=== PATIENT | female | born 1985 | race African-American/Black ===

== ENCOUNTER 2023-10-05 12:03 | Outpatient (REF) | payer MEDICAID, SELFPAY ==
--- NOTE | ~2023-10-05 | XR_ITS ---
EXAMINATION: XR KNEE, RIGHT CLINICAL INFORMATION: Right knee pain and swelling. COMPARISON: None available. TECHNIQUE: AP and lateral views of the right knee. FINDINGS: Mild medial compartment joint space narrowing. Tiny patellofemoral and lateral compartment marginal osteophytes. No osseous erosion. No acute fracture or dislocation. No abnormal soft tissue calcification. No significant joint effusion. XR/XR knee RT 2V IMPRESSION: Minimal tricompartmental arthrosis.
== END 2023-10-05 12:04 | disposition home or self-care (01) ==
LOC: HO.HHCX 12:03
PROVIDERS: Visit Provider Student in an Organized Health Care Education/Training Program
DX: M25.561 Pain in right knee (principal); G89.29 Other chronic pain
CPT/HCPCS: 73560

== ENCOUNTER 2023-12-14 08:13 | Outpatient (REF) | payer MEDICAID, SELFPAY ==
[2023-12-14 11:38] LABS: Hematocrit 42.1 % (37.0-47.0); Hemoglobin 13.7 g/dl (12.0-16.0); Mean Corpuscular HGB Conc 32.5 g/dl (31.0-35.0); Mean Corpuscular Hemoglobin 27.5 pg (27.0-33.0); Mean Corpuscular Volume 84.4 fL (80.0-98.0); Mean Platelet Volume 11.4 fL (9.4-12.3); Platelet Count 218 X10*3/uL (160-400); Red Blood Count 4.99 X10*6/uL (4.20-5.50); Red Cell Distribution Width 12.6 % (11.0-16.0)
[2023-12-14 11:41] LABS: Estimated Average Glucose 126 mg/dL
[2023-12-14 11:46] LABS: Alanine Aminotransferase 20 U/L (0-31); Albumin Level 4.4 g/dL (3.5-5.0); Alkaline Phosphatase 81 U/L (39-117); Anion Gap 13 (12-20); Aspartate Amino Transferase 19 U/L (5-31); Bilirubin Total 0.2 mg/dL (0.0-1.0); Blood Urea Nitrogen 15 mg/dL (9-16); Calcium 9.2 mg/dL (8.4-10.2); Carbon Dioxide 22 mmol/L (22-29); Chloride 111 mmol/L (96-108); Cholesterol 133 mg/dL (<200); Estimated Glomerular Filt Rate > 60; Glucose Random 136 mg/dL (60-115); HDL Cholesterol 35 mg/dL (>40); LDL Cholesterol Calculated 87 mg/dL (<100); Potassium 3.8 mmol/L (3.3-5.1); Sodium 142 mmol/L (135-145); Total Protein 7.9 g/dL (6.5-8.0); Triglycerides 55 mg/dL (<150)
[2023-12-14 12:02] LABS: HBS Num1 0.83 mIU/mL (0-7.99); HBc Num1 0.12 S/CO (0.00-0.79); HBsAGNum1 0.31 S/CO (0.00-0.99); HIV AB/AG Nonreactive (Nonreactive); HIV Num 1 0.05 S/CO (0.00-0.99); Hepatitis B Core Antibody Nonreactive (Nonreactive); Hepatitis B Surface Antigen Negative (Negative); Syphilis Screen Nonreactive (Nonreactive); ~HepC Num1 0.21 S/CO (0.00-0.79); ~Hepatitis B Surface Antibody NONREACTIVE (Nonreactive); ~Hepatitis C Antibody Nonreactive (Nonreactive)
[2023-12-14 12:05] LABS: TSH reflex Free T4 0.99 uIU/mL (0.32-4.0)
[2023-12-14 13:28] LABS: CT PCR NOT DETECTED (Not Detect.); NG PCR NOT DETECTED (Not Detect.)
[2023-12-17 07:24] LABS: TS Negative Control Passed; TS Panel A 0; TS Panel B 0; TS Positive Control Passed; TSpotTB Negative (Negative)
== END 2023-12-14 08:14 | disposition home or self-care (01) ==
LOC: HO.HHCL 08:13
PROVIDERS: Visit Provider Student in an Organized Health Care Education/Training Program
DX: Z00.00 Encounter for general adult medical examination without abnormal findings (principal)
CPT/HCPCS: 36415; 80053; 80061; 83036; 84443; 85027; 86481; 86704; 86706; 86780; 86803; 87340; 87389; 87491; 87591

== ENCOUNTER 2024-07-25 11:48 | Outpatient (REF) | payer MEDICAID, SELFPAY ==
[2024-07-25 13:59] LABS: HCG Quantitative < 2 mIU/mL
--- OUTSIDE RECORDS SUMMARY | 2024-07-25 14:16 | XMS_ITS | Encounter Summary ---
Author Organization [employer] Address [address] [place] [address] Care Team Providers Care Catering Assistant Name Role Phone Augusta Cuba MD Primary Care Pro vider Reason for Visit * Reason Comments Headache Encounter Details Date Type Department Care Team ([facility] st Contact Info) Description 07/25/2024 11:00 AM EDT Office Visit [facility] [address] [place] [address] Acute intractable headache, unspecified headache type (Primary Dx); Missed menses; Elevated blood pressure reading in office without diagnosis of hypertension; Chronic pain of right knee Social History Tobacco Use Types Packs/Day Years Used Date Smoking Tobacco: Never Passive Smoke Exposure: Never Smokeless Tobacco: Never Alcohol Use Standard Drinks/Week Comments Never 0 (1 standard drink = 0.6 oz pur e alcohol) Depression Answer Date Recorded Patient Health Questionnaire-9 Score 0 06/06/2023 Patient Health Questionnaire-9 Score 0 06/06/2023 Last PHQ-9: Questionnaire Data Not on file 0 06/06/2023 Housing Stability Answer Date Recorded What is your housing situation today? I do not have housing (Staying with others, in a hotel, in a penitentiary, living outside on the street, on a beach, in a car, or in a park 05/04/[address] you li ve. Do you have problems with any of the following? None of the above 05/04/2023 Food Insecurity Answer Date Recorded Within the past 12 months, y ou worried that your food would run out before you got money to buy more: Sometimes True 2023 Within the past 12 months,th e food you bought just didn't last and you didn't have enough money to get more: Sometimes True 05/04/2023 Transportation Answer Date Recorded In the past 12 months, has l ack of transportation kept you from medical appts, meetings, work or from getting things needed for daily living? Yes, it has kept me from medical appointments or getting medications. 05/04/2023 Utilities Answer Date Recorded In the past 12 months, has t he electric, gas, oil or water company threatened to shut off services in your home? No 01/20/2023 Depression Answer Date Recorded Patient Health Questionnaire-2 Score 0 06/06/2023 Comments Unknown Sex and Gender Information Value Date Recorded Sex Assigned at Female 06/10/2022 10:20 AM EST Legal Sex Female 10:11 AM EST Gender Identity Female 06/10/2022 10:20 AM EST Sexual Orientation Straight 06/10/2022 10 :20 AM EST documented as of this encounter Last Filed Vital Signs Vital Sign Reading Time Taken Comments Blood Pressure 143/95 07/25/2024 10:46 AM EDT Pulse 84 07/25/2024 10:46 AM EDT Temperature 36.9 ??C (98.4 ??F) 07/25/2024 10:46 AM E DT Respiratory Rate 17 07/25/2024 10:46 AM EDT Oxygen Saturation 99% 07/25/2024 10:46 AM EDT Inhaled Oxygen Concentration - - Weight 101 kg (223 lb 6.4 oz) 07/25/2024 10:46 A M EDT Height - - Body Mass Index 36.33 12/19/2023 1:20 PM EDT documented in this encounter Plan of Treatment Upcoming Encounters Date Type Department Care Team (Late st Contact Info) Description 07/31/2024 1:00 PM EDT Office Visit [facility] [address] [place] [phone] Tammy Blanco CNM [address] [place] [address] 09/19/2024 9:45 AM EDT Office Visit [facility] [address] [place] [phone] Augusta Cuba MD [address] [place] [address] documented as of this encounter Procedures Procedure Name Priority Date/Time Associated Diagnosis Comments HCG, TOTAL, QN Routine 07/25/2024 11:51 AM EDT Missed menses documented in this encounter Results * hCG, Total, Quantitative (07/25/2024 11:51 AM EDT) HCG Quantitative <2 mIU/mL [facility] Comment:Weeks post LMP Appro ximate hCG(Last Menstrual Period) Range (mIU/ml)3 - 4 weeks 9 - 1304 - 5 weeks 75 - 2,6005 - 6 weeks 850 - 20,8006 - 7 weeks 4000 - 100,2007 - 12 weeks 11,500 - 289,97218 - 16 weeks 18,300 - 137,63692 - 29 weeks (2nd trimester) 1,400 - 53,58613 - 41 weeks (3rd trimester) 940 - 60,000The Rodríguez B- hCG assay is used for the early detection ofpregnancy; it cannot be used to diagnose any conditionunrelated to . If a B-hCG level is not supportedby the clinical evidence, results should be confirmed by analternative method (qualitative urine hCG, for example). Blood Venous blood specimen / Unknown 07/25/2024 11:51 AM EDT 07/25/2024 1:08 PM EDT us Luis Cifuentes MD LAB BLOOD ORDERABLES Final Resul t [facility] [address] [place] [phone] documented in this encounter Visit Diagnoses Diagnosis Acute intractable headache, unspecified headache type- Primary Missed menses Elevated blood pressure reading in office without diagnosis of hypertension Chronic pain of right knee documented in this encounter Additional Health Concerns Assessment Noted Time PHQ-9 Depression Total Score: 0 06/06/19 24 4:23 PM EST documented as of this encounter Care Teams Catering Assistant Relationship Specialty Start Date End Date Augusta Cuba MD [address] [place] [phone] PCP - General Internal Medicine 11/22/22 documented as of this encounter
--- OUTSIDE RECORDS SUMMARY | 2024-07-25 14:16 | XMS_ITS | Clinical Summary ---
Demographics Address [address] [place] [address] Mobile Phone Home Phone Work Phone Preferred Language Unknown Marital Status Restoration Affiliation Unknown Race Other Race Ethnic Group Unknown Author Organization [employer] Address [address] [place] [address] Care Team Providers Care Sr. Manager Corporate Communications Name Role Phone Augusta Cuba MD Primary Care Pro vider Allergies No known active allergies Medications * This document contains information received from the source organization and may not represent a complete record from that organization. Blood Pressure Monitoring (Omron 3 Series BP Monitor) device TAKE BLOOD PRESSURE EVERY MORNING 06/11/19 23 Active medroxyPROGEST ERone (Depo-Provera) 150 MG/ML injection Inject 1 mL (150 mg) into the shoulder, thigh, or buttocks every 3 (three) months. 1 mL 3 08/01/19 24 Active White Petrolatum-Min eral Oil (Eye Lubricant) ointment Apply 2 drops to affected eye(s) Every 4-6 hours as needed (eye dryness). 3.5 g 10/05/19 24 Active acetaminophen (Tylenol) 500 MG tablet Take 2 tablets (1,000 mg) by mouth every 6 (six) hours if needed for moderate pain or fever for up to 25 doses. 30 tablet 07/26/19 25 Active ibuprofen 400 MG tabletIndicati ons:Chronic pain of right knee Take 1 tablet (400 mg) by mouth every 8 (eight) hours if needed for mild pain. 30 tablet 07/26/19 25 Active ibuprofen 400 MG tabletIndicati ons:Chronic pain of right knee Take 1 tablet (400 mg) by mouth every 8 (eight) hours if needed for mild pain. 30 tablet 10/05/19 24 025 Discontinued(Re order (will not trigger notification to Pharmacy)) Hospital, Clinic, or Other Facility Administered Medication Ordered Dose Route Frequency Start Date End Date Status medroxyPROGESTERone (Depo-Provera) injection 150 mgIndications:Encounte r for contraceptive management, unspecified type 150 mg IM Every 3 months 03/16/2024 03/11/2025 Acti ve Active Problems Patient Care Coordination No te Formatting of this note migh t be different from the original. C3/CM Marlen Matias RN Problem Noted Date Diagnosed Date Prediabetes 12/19/2023 Dizzinesses 12/19/2023 Eye discomfort, right 10/05/2023 Right knee pain 08/18/2023 Obesity (BMI 30.0-34.9) 02/13/2023 Routine adult health maintenance 07/12/2022 Resolved Problems Problem Noted Date Diagnosed Date Resolved Date depression 05/30/20232023 Sinus tachycardia 02/13/2023 06/07/2023 Encounters Date Type Department Care Team Description 07/25/2024 11:00 AM EDT Office Visit [facility] [address] [place] [address] Acute intractable headache, unspecified headache type (Primary Dx); Missed menses; Elevated blood pressure reading in office without diagnosis of hypertension; Chronic pain of right knee 07/25/2024 Travel 06/15/2024 Population Health Risk Score [facility] ([facility]) Department [address] [place] [phone] Provider, Population Health Generic 05/31/2024 Telephone [facility] [address] [place] [address] Augusta Cuba MD May Recall 05/22/2024 Travel from Last 3 Months Immunizations Name Administration Dates Next Due Influenza, seasonal, injectable, preservative fr ee 12/19/2023 Tdap 02/09/2023 Family History Medical History Relation Name Comments HTN Sister Relation Name Status Comments Sister Social History Tobacco Use Types Packs/Day Years Used Date Smoking Tobacco: Never Passive Smoke Exposure: Never Smokeless Tobacco: Never Tobacco Cessation:Counseling Given: Not Answered Alcohol Use Standard Drinks/Week Comments Never 0 [...] with others, in a hotel, in a mcfp, living outside on the street, on a [...] Orientation Straight 06/10/2022 10 :20 AM EST Last Filed Vital Signs Vital Sign Reading [...] oz) 07/25/2024 10:46 A M EDT Height 167 cm (5' 5.75 ) 12/19/2023 1:20 PM EDT Body Mass Index 36.33 12/19/2023 1:20 PM EDT Plan of Treatment Upcoming Encounters Date Type Department Care Team (Late st Contact Info) Description 07/31/2024 1:00 PM EDT Office Visit [facility] [address] [place] [address] [phone] Tammy Blanco CNM [address] [place], [place] [phone] 09/19/2024 9:45 AM EDT Office Visit [facility] [address] [place] [address] [phone] Augusta Cuba MD [address] [place], [place] [phone] Health Maintenance Due Date Last Done Comments Alcohol/Substance Use Screening 1999 Hepatitis B Vaccines (1 of 3 - 19+ 3-dose series) 2006 COVID-19 Vaccine (2023-2 5 season) 2023 SDOH Screening 05/04/2024 05/04/2023 Depression Screening 06/05/2024 06/06/2023, 06/06/2023 Family Planning (PISQ) 07/31/2024 08/01/2023 Diabetes: Hemoglobin A1C 12/13/2024 024, 07/14/2022 Tobacco Screening 07/25/2025 07/25/2024 Pap Smear 07/29/2025 07/29/2022 Cervical Cancer Screening 07/30/2027 HPV/Cotest 07/30/2027 07/29/2022 Lipid Panel 12/13/2028 12/14/2023, 07/14/2022 DTaP/Tdap/Td Vaccines (2 - T d or Tdap) 02/09/2033 02/09/2023 Zoster Vaccines (1 of 2) 2037 RSV Patients and Patients Aged 60 years or older (1 - 1-dose 75+ series) 2062 HIV Screening Completed 12/14/2023 Hepatitis C Screening Completed 12/14/2023 Influenza Vaccine Completed 12/19/2023 HIB Vaccines Aged Out No longer eligi ble based on patient's age to complete this topic HPV Vaccines Aged Out No longer eligi ble based on patient's age to complete this topic Hepatitis A Vaccines Aged Out No long er eligible based on patient's age to complete this topic IPV Vaccines Aged Out No longer eligi ble based on patient's age to complete this topic Meningococcal Vaccine Aged Out No yeison steven eligible based on patient's age to complete this topic Pneumococcal Vaccine: Pediatrics (0 to 5 Years) and At-Risk Patients (6 to 49) Years) Aged Out No longer eligible b ased on patient's age to complete this topic RSV under 20 months Aged Out No longe r eligible based on patient's age to complete this topic Rotavirus Vaccines Aged Out No longer eligible based on patient's age to complete this topic Procedures Procedure Name Priority Date/Time Associated Diagnosis Comments HCG, TOTAL, QN Routine 07/25/2024 11:51 AM EDT Missed menses HEPATITIS C AB W/REFL TO HCV RNA, QN, PCR Routine 12/14/2023 8:32 AM EDT Annual physical exam HIV 1/2 ANTIGEN/ANTIBODY, FOURTH GENERATION W/RFL Routine 12/14/2023 8:32 AM EDT Annual physical exam HEMOGLOBIN A1C Routine 12/14/2023 8:32 AM EDT Annual physical exam LIPID PANEL, STANDARD Routine 12/14/2023 8:32 AM EDT Annual physical exam IMAGE-GUIDED PAP W/AGE BASED SCR,W/CT/NG/TRICH Routine 07/29/2022 11:16 AM EDT Cervical cancer screening from Last 3 Months or Most Recently Relevant to Health Maintenance Results * hCG, Total, Quantitative (07/25/2024 11:51 AM EDT) HCG Quantitative <2 mIU/mL [facility] Comment:Weeks post LMP Appro ximate hCG(Last Menstrual Period) Range (mIU/ml)3 - 4 weeks 9 - 1304 - 5 weeks 75 - 2,6005 - 6 weeks 850 - 20,8006 - 7 weeks 4000 - 100,2007 - 12 weeks 11,500 - 289,03882 - 16 weeks 18,300 - 137,96617 - 29 weeks (2nd trimester) 1,400 - 53,42870 - 41 weeks (3rd trimester) 940 - [...] MD LAB BLOOD ORDERABLES Final Resul t Performing Organization Address [facility]/ZIP Co de Phone Number [facility] [address] [place] [phone] * Hepatitis C Antibody with Reflex to HCV, RNA, Quantitative, Real-Time PCR (12/14/2023 8:32 AM EDT) Hepatitis C Antibody Nonreactive Nonreactive [facility] Comment:Antibodies to HCV no t detected; does not exclude early acuteHCV infection. Blood Venous blood specimen / Unknown 12/14/2023 8:32 AM EDT 12/14/2023 11:20 AM EDT us Augusta May MD LAB BLOOD ORDERAB LES Final Result Performing Organization Address [facility]/ZIP Co de Phone Number [facility] [address] [place] [phone] * HIV-1/2 Antigen and Antibodies, Fourth Generation, with Reflexes (12/14/2023 8:32 AM EDT) HIV AB/AG Nonreactive Nonreactive [facility] Comment:HIV-1 p24 Ag and/or HIV-1/HIV-2 Ab not detected.A test result that is nonreactive does not exclude thepossibility of exposure to or infection with HIV-1 and/orHIV-2. Nonreactive results in this assay for individualswith prior exposure to HIV-1 and/or HIV-2 may be due toantigen and antibody levels that are below the limit ofdetection of this assay.The ezNetPayniPrimordial HIV Ag/Ab Combo assay result andsupplemental assay results should be interpreted inconjunction with the patient's clinical presentation,history and other laboratory results. If the results areinconsistent with clinical evidence, additional testing issuggested to confirm the result. Blood Venous blood specimen / Unknown 12/14/2023 8:32 AM EDT 12/14/2023 11:20 AM EDT Augusta May MD LAB BLOOD ORDERAB LES Final Result [facility] [address] [place] [phone] * Hemoglobin A1c (12/14/2023 8:32 AM EDT) Hemoglobin A1c 6.0 <6.0 % [facility] Comment:Hemoglobin A1C Refer ence Range Adults: 4.8 - 6.0 % Non diabetic: < 6.0 % Goal: < 7.0 %Additional Action Suggested: > 8.0 %Note: Hemoglobin A1c results are invalid for patients with abnormal amounts of HbF. Blood transfusions may impact the HbA1c concentration in the patient sample. Estimated Average Glucose 126 mg/dL [facility] Comment:eAG = Estimated ave rage glucose which is %A1C expressed asaverage glucose, using the formula of the U5R-FbnwrluYkngsti Glucose study (ADAG), Diabetes Care, Vol.31,#8,Nov. 2007 Blood Venous blood specimen / Unknown 12/14/2023 8:32 AM EDT 12/14/2023 11:20 AM EDT Augusta May MD LAB BLOOD ORDERAB LES Final Result Performing Organization Address City/[facility]/ZIP Co de Phone Number [facility] [address] [place] [phone] * (ABNORMAL) Lipid Panel, Standard (12/14/2023 8:32 AM EDT) Triglycerides 55 <150 mg/dL [facility] Comment:Desirable Triglyceri de: less than 150 mg/dLBorderline High Triglyceride 150-199 mg/dLHigh Triglyceride: 200-499 mg/dLVery High Triglyceride: greater than or equal to 5OO mg/dL Cholesterol 133 <200 mg/dL [facility] Comment:Desirable Cholestero l: less than 200 mg/dLBorderline High Cholesterol: 200-239 mg/dLHigh Cholesterol: greater than 239 mg/dL LDL Cholesterol Calculated 87 <100 mg/dL [facility] Comment:Desirable LDL: less than 100 mg/dLNear Optimal/Above Optimal LDL: 110- 129 mg/dLBorderline High LDL: 130-159 mg/dLHigh LDL: 160-189 mg/dLVery High LDL: greater than or equal to 190 mg/dL HDL Cholesterol 35(L) >40 mg/dL [facility] Comment:Desirable HDL: grea ter than 40 mg/dL Note: This HDL assay may give artificially low results in patients with liver disease. Blood Venous blood specimen / Unknown 12/14/2023 8:32 AM EDT 12/14/2023 11:20 AM EDT Augusta May MD LAB BLOOD ORDERAB LES Final Result [facility] [address] [place] [phone] * Image-Guided Pap with Age-Based Screening??with CT/NG,??Trichomonas (07/29/2022 11:16 AM EDT) Comment [facility] Comment: This order for age-based cervical cancer and STI screening follows ACOG guidelines(PB 168, 140, WEA910). See individual assays for performing site location. Clinical Information: SCREENING [facility] [place] [employer] [facility] LMP: NONE GIVEN [facility] [place] [facility] [place] [facility] Prev. PAP: NONE GIVEN [facility] [place] [facility] [place] [facility] Prev. BX: NONE GIVEN [facility] [place] [facility] SOURCE: None given [facility] [place] [facility] Statement Of Adequacy: [facility] [place] [facility] [facility] Comment: Satisfactory for evaluation. Endocervical/transformation zone component absent. Interpretation/Re sult: Negative for intraepithelial lesion or malignancy. [facility] [place] [employer] COMMENT: This Pap test has been evaluated with computer assisted technology. [facility] [place] [employer] Cyber Forensics Analyst: Madhavi est [employer] [place] [employer] Comment: WAC, CT(ASCP) CT screening location: [address] ??[phone] (Always Message) [facility] [place] [employer] Comment: EXPLANATORY NOTE: The Pap is a screening test for cervical cancer. It is not a diagnostic test and is subject to false negative and false positive results. It is most reliable when a satisfactory sample, regularly obtained, is submitted with relevant clinical findings and history, and when the Pap result is evaluated along with historic and current clinical information. HPV nRNA E6/E7 Not Detected Not Detected [facility] Comment: Methodology: Ambulance Officer-Mediated Amplification This assay detects E6/E7 viral messenger RNA (mRNA) from 14 high-risk HPV types (16,18,31,33,35,39,45,51,52,56,58,59,66,68). Cervical sources are required for HPV testing. If a vaginal source from a patient who has had a total hysterectomy with removal of cervix was submitted, please contact the testing laboratory for alternative testing options. For additional information, please refer to http://education.[employer]/faq/DMH757g1 (This link if provided for information/ educational purposes only.) Chlamydia trachomatis RNA, TMA, Urogenital NOT DETECTED NOT DETECTED [facility] Neisseria gonorrhoeae RNA, TMA, Urogenital NOT DETECTED NOT DETECTED [employer] (Always Message) [facility] [employer] [facility] Comment: The analytical performance characteristics of this assay, when used to test SurePath(TM) specimens have been determined by [facility]. The modifications have not been cleared or approved by the FDA. This assay has been validated pursuant to the CLIA regulations and is used for clinical purposes. For additional information, please refer to https://Little Black Bag.[employer]/faq/NTC016 (This link is being provided for information/ educational purposes only.) Trichomonas vaginalis, QL, TMA, PAP Vial NOT DETECTED NOT DETECTED [facility] [place] [facility] Comment: The analytical performance characteristics of this assay have been determined by [facility]. The modifications have not been cleared or approved by the FDA. This assay has been validated pursuant to the CLIA regulations and is used for clinical purposes. For additional information, please refer to http://Little Black [employer]/ faq/Trichomonastma (This link is being provided for information/ educational purposes only.) Pap Vial 07/29/2022 11:1 6 AM EDT 07/30/2022 5:24 AM EDT Tammy Blanco [facility] CYTOLOGY ORDERABLES F inal Result [facility] [address], [place] [phone] [facility] [place] [employer] [address] [place] [phone] from Last 3 Months or Most Recently Relevant to Health Maintenance [facility] Care Teams Sr. Manager Corporate Communications Relationship Specialty Start Date End Date Augusta Cuba MD [address] [place] [phone] PCP - General Internal Medicine 11/22/22
--- OUTSIDE RECORDS SUMMARY | 2024-07-25 14:16 | XMS_ITS | Encounter Summary ---
Demographics Address [address] [place] [address] Mobile Phone Home Phone Work Phone Preferred Language Unknown Marital Status Quaker Affiliation Unknown Race Other Race Ethnic Group Unknown Author Organization [employer] Address [address] [place] [address] Care Team Providers Care Dual Hose Cementer Name Role Phone Augusta Cuba MD Primary Care Pro vider Encounter Details Date Type Department Care Team (Latest Contact Info) Description 07/25/2024 Travel Social History Tobacco Use Types Packs/Day Years [...] with others, in a hotel, in a chcf, living outside on the street, on a [...] AM EST documented as of this encounter Plan of Treatment Upcoming Encounters Date Type Department Care Team (Late st Contact Info) Description 07/31/2024 1:00 PM EDT Office Visit [facility] [address] [place] [phone] Tammy Blanco CNM [address] [place] [phone] 09/19/2024 9:45 AM EDT Office Visit [facility] [address] [place] [phone] Augusta Cuba MD [address] [place] [phone] documented as of this encounter Visit Diagnoses Not on filedocumented in this encounter Additional Health Concerns Assessment Noted Time PHQ-9 Depression Total Score: 0 06/06/19 24 4:23 PM EST documented as of this encounter Care Teams Dual Hose Cementer Relationship Specialty Start Date End Date Augusta Cuba MD [address] [place] [phone] PCP - General Internal Medicine 11/22/22 documented as of this encounter
== END 2024-07-25 11:49 | disposition home or self-care (01) ==
LOC: HO.HHCL 11:48
PROVIDERS: Visit Provider Emergency Medicine
DX: N92.6 Irregular menstruation, unspecified (principal)
CPT/HCPCS: 36415; 84702

== ENCOUNTER 2024-11-29 12:45 | Outpatient (REF) | payer MEDICAID, SELFPAY ==
--- NOTE | ~2024-11-29 | CT_ITS ---
EXAMINATION: CT HEAD WITHOUT CONTRAST CLINICAL INFORMATION: Headache over the vertex, no trauma COMPARISON: None available. TECHNIQUE: Contiguous axial imaging was performed from the skull base to vertex without intravenous administration of contrast. This CT examination was performed using dose optimization techniques as appropriate, variously including the following: *Automated exposure control *Adjustment of mA and/or kV according to patient size (this includes techniques or standardized protocols for targeted exams where dose is matched to indication/reason for exam; i.e. extremities or head) *Use of iterative reconstruction technique DLP: 774 mGY*cm FINDINGS: There is no acute ischemic change. There is no intracranial hemorrhage. There is no mass-effect or midline shift. Basal cisterns and ventricles are within normal limits for age/cerebral volume. Orbits are symmetrical and unremarkable. Paranasal sinuses and mastoid air cells are pneumatized. There are no bony abnormalities. CT/CT head/brain wo IV con IMPRESSION: No acute intracranial abnormality. Electronically signed by: Mac Fontana MD 11/29/2024 01:46 PM EDT
--- OUTSIDE RECORDS SUMMARY | 2024-11-29 13:21 | XMS_ITS | Clinical Summary ---
Author Organization [employer] Address [address] [facility] [address] [place] [address] Care Team Providers Care Sales Enablement Lead Name Role Phone Augusta Cuba MD Primary Care Pro vider Allergies No known active allergies Medications * This document contains information received from the source organization and may not represent a complete record from that organization. Blood Pressure Monitoring (Omron 3 Series BP Monitor) device TAKE BLOOD PRESSURE EVERY MORNING 06/11/19 23 Active White Petrolatum-Min eral Oil (Eye Lubricant) [...] mild pain. 30 tablet 07/26/19 25 Active Magnesium 400 MG capsule Take 400 mg by mouth Once per day. 90 capsule 1 11/23/19 25 Active Magnesium 400 MG capsule Take 400 mg by mouth Once per day. 90 capsule 09/20/19 25 025 Discontinued(Re order (will not trigger notification to Pharmacy)) fluticasone (Flonase) 50 MCG/ACT nasal spray Administer 1-2 sprays into each nostril Once per day for 14 days. Shake gently. Before first use, prime pump. After use, clean tip and replace cap.treat for 14 days only 16 g 09/20/19 25 025 Discontinued(Ot her) Active Problems Patient Care Coordination No te Formatting of this note migh t be different from the original. C3/CM Marlen Matias RN Problem Noted Date Diagnosed Date Housing instability, currently housed 10/01/2024 Class 2 obesity 10/01/2024 Nonintractable episodic headache 09/19/2024 Prediabetes 12/19/2023 Dizzinesses 12/19/2023 Eye discomfort, right 10/05/2023 Right knee pain 08/18/2023 Routine adult health maintenance 07/12/2022 Resolved Problems Problem Noted Date Diagnosed Date Resolved Date depression 05/30/20232023 Sinus tachycardia 02/13/2023 06/07/2023 Encounters Date Type Department Care Team Description 11/22/2024 10:30 AM EDT Office Visit [facility] [address] [place] [phone] Augusta Cuba MD Class 2 obesity (Primary Dx); Routine adult health maintenance; Nonintractable episodic headache, unspecified headache type 11/22/2024 Travel 11/21/2024 Telephone [facility] [address] [place] [address] Augusta Cuba MD chart prep 10/01/2024 10:00 AM EDT Office Visit [facility] [address] [place] [address] Desiree Soliz Dental plaque (Primary Dx); Dental calculus; Gingival bleeding; Dental caries 09/19/2024 9:45 AM EDT Office Visit [facility] [address] [place] [address] Augusta Cuba MD Prediabetes (Primary Dx); Chronic pain of right knee; Dietary counseling; Exercise counseling; Obesity (BMI 30.0-34.9); Eye discomfort, right; Routine adult health maintenance; Dizzinesses; Nonintractable episodic headache, unspecified headache type 09/19/2024 Telephone [facility] [address] [place] [address] Augusta Cuba MD Appointment 09/19/2024 Travel 09/18/2024 Telephone [facility] [address] [place], [place] [phone] Augusta Cuba MD from Last 3 Months Immunizations Immunization Administration Dates Next Due Influenza, seasonal, injectable, [...] Date Recorded Patient Health Questionnaire-9 Score 0 09/19/2024 Patient Health Questionnaire-9 Score 0 09/19/2024 Last PHQ-9: Questionnaire Data Not on file 0 09/19/2024 Housing Stability Answer Date Recorded What is your housing situation today? I have doloressarita emery 11/22/[address] you li ve. Do you have problems with any of the following? None of the above 11/22/2024 Food Insecurity Answer Date Recorded Within the past 12 months, y ou worried that your food would run out before you got money to buy more: Never True 09/19/2024 Within the past 12 months,th e food you bought just didn't last and you didn't have enough money to get more: Never True Transportation Answer Date Recorded In the past 12 months, has l ack of transportation kept you from medical appts, meetings, work or from getting things needed for daily living? No 09/19/2024 Utilities Answer Date Recorded In the past 12 months, has t he electric, gas, oil or water [employer] threatened to shut off services in your home? No 09/19/2024 Depression Answer Date Recorded Patient Health Questionnaire-2 Score 0 09/19/2024 Internet Access Answer Date Recorded Internet Access Q1 Yes 11/22/2024 Internet Access Q2 I do not want or need it 11/03 Comments No Intention Date Recorded No desire to become (finding) 0 07/31/2024 Sex and Gender Information Value Date Recorded Sex Assigned at Female 06/10/2022 10:20 AM EST Legal Sex Female 10:11 AM EST Gender Identity Female 06/10/2022 10:20 AM EST Sexual Orientation Straight 06/10/2022 10 :20 AM EST Last Filed Vital Signs Vital Sign Reading Time Taken Comments Blood Pressure 126/88 11/22/2024 10:40 AM EDT Pulse 77 11/22/2024 10:40 AM EDT Temperature 36.2 C (97.1 F) 11/22/2024 10:40 AM EDT Respiratory Rate 20 11/22/2024 10:40 AM EDT Oxygen Saturation 99% 11/22/2024 10:40 AM EDT Inhaled Oxygen Concentration - - Weight 97.3 kg (214 lb 9.6 oz) 11/22/2024 10:40 AM EDT Height 152.5 cm (5' 0.05 ) 11/22/2024 10:40 AM E DT Body Mass Index 41.84 11/22/2024 10:40 AM EDT Plan of Treatment Upcoming Encounters Date Type Department Care Team (Late st Contact Info) Description 12/04/2024 10:30 AM EDT Office Visit [facility] [address] [place] [phone] Tamra Cho, OD [address] [place] [address] 02/21/2025 10:45 AM EST Office Visit [facility] [address] [place] [phone] Augusta Cuba MD [address] [place] [phone] 04/15/2025 10:00 AM EST Office Visit [facility] [address] [place] [phone] Awa June [address] [place] [phone] Health Maintenance Due Date Last Done Comments Dental X-Ray: [employer] 1987 HPV Vaccines (1 - 3-dose series) 2002 Hepatitis B Vaccines (1 of 3 - 19+ 3-dose series) 2006 COVID-19 Vaccine (1 - 2024-2 5 season) 2023 Influenza Vaccine (#1) 2024 12/19/2023 Diabetes: Hemoglobin A1C 12/13/2024 024, 07/14/2022 Dental Oral Exam 04/03/2025 10/01/2024 Dental Prophylaxis 04/03/2025 10/01/2024 Pap Smear 07/29/2025 07/29/2022 Family Planning (PISQ) 07/31/2025 07/31/2024 Alcohol/Substance Use Screening 09/19/2025 09/19/2024 Depression Screening 09/19/2025 09/19/2024, 09/19/2024 Disability Screening 09/19/2025 09/19/2024 SDOH Screening 11/22/2025 11/22/2024 Tobacco Screening 11/22/2025 11/22/2024 Cervical Cancer Screening 07/30/2027 HPV/Cotest 07/30/2027 07/29/2022 Dental X-Ray: Full Mouth 10/03/2027 10/01/2024 Lipid Panel 12/13/2028 12/14/2023, 07/14/2022 DTaP/Tdap/Td Vaccines (2 - T d or Tdap) 02/09/2033 02/09/2023 Zoster Vaccines (1 of 2) 2037 RSV Patients and Patients Aged 60 years or older (1 - 1-dose 75+ series) 2062 HIV Screening Completed 12/14/2023 Hepatitis C Screening Completed 12/14/2023 HIB Vaccines Aged Out No longer eligi ble based on patient's age to complete this topic Hepatitis A Vaccines Aged Out No long er eligible based on patient's age to complete this topic IPV Vaccines Aged Out No longer eligi ble based on patient's age to complete this topic Meningococcal B Vaccine Aged Out No l onger eligible based on patient's age to complete this topic Meningococcal Vaccine Aged Out No yeison steven eligible based on patient's age to complete this topic Pneumococcal Vaccine: Pediatrics (0 to 5 Years) and At-Risk Patients (6 to 49) Years Aged Out No longer eligible b ased on patient's age to complete this topic RSV under 20 months Aged Out No longe r eligible based on patient's age to complete this topic Rotavirus Vaccines Aged Out No longer eligible based on patient's age to complete this topic Procedures Procedure Name Priority Date/Time Associated Diagnosis Comments PANORAMIC RADIOGRAPHIC IMAGE Routine 10/01/2024 10:00 AM EDT ORAL HYGIENE INSTRUCTIONS Routine 10/01/2024 10:00 AM EDT PROPHYLAXIS - ADULT Routine 10/01/2024 1 0:00 AM EDT COMPREHENSIVE ORAL EVALUATION - NEW OR ESTABLISHED PATIENT Routine 10/01/2024 10:00 AM EDT Dental plaque Dental calculus Gingival bleeding Dental caries HEPATITIS C AB W/REFL TO HCV RNA, [...] Recently Relevant to Health Maintenance Results * Hepatitis C Antibody with Reflex to HCV, RNA, Quantitative, Real-Time PCR (12/14/2023 8:32 AM EDT) Hepatitis C Antibody Nonreactive Nonreactive [facility] Comment:Antibodies to HCV no t detected; does not exclude early acuteHCV infection. Blood Venous blood specimen / Unknown 12/14/2023 8:32 AM EDT 12/14/2023 11:20 AM EDT us Augusta May MD LAB BLOOD ORDERAB LES Final Result [facility] [address] [place] [phone] * HIV-1/2 Antigen and Antibodies, Fourth Generation, with Reflexes (12/14/2023 8:32 AM EDT) HIV AB/AG Nonreactive Nonreactive [facility] Comment:HIV-1 p24 Ag and/or HIV-1/HIV-2 Ab not detected.A test result that is nonreactive does not exclude thepossibility of exposure to or infection with HIV-1 and/orHIV-2. Nonreactive results in this assay for individualswith prior exposure to HIV-1 and/or HIV-2 may be due toantigen and antibody levels that are below the limit ofdetection of this assay.The [employer] HIV Ag/Ab Combo assay result andsupplemental assay results should be interpreted inconjunction with the patient's clinical presentation,history and other laboratory results. If the results areinconsistent with clinical evidence, additional testing issuggested to confirm the result. Blood Venous blood specimen / Unknown 12/14/2023 8:32 AM EDT 12/14/2023 11:20 AM EDT us Augusta May MD LAB BLOOD ORDERAB LES Final Result [facility] [address] [place] [phone] * Hemoglobin A1c (12/14/2023 8:32 AM EDT) Hemoglobin A1c 6.0 <6.0 % [facility] Comment:Hemoglobin A1C Refer ence Range Adults: 4.8 - 6.0 % Non diabetic: < 6.0 % Goal: < 7.0 %Additional Action Suggested: > 8.0 %Note: Hemoglobin A1c results are invalid for patients with abnormal amounts of HbF. Blood transfusions may impact the HbA1c concentration in the patient sample. Estimated Average Glucose 126 mg/dL [facility] Comment:eAG = Estimated ave rage glucose which is %A1C expressed asaverage glucose, using the formula of the T6S-YaimfidEmatkag Glucose study (ADAG), Diabetes Care, Vol.31,#8,Nov. 2007 Blood Venous blood specimen / Unknown 12/14/2023 8:32 AM EDT 12/14/2023 11:20 AM EDT us Augusta May MD LAB BLOOD ORDERAB LES Final Result Performing Organization Address [facility]/ZIP Co de Phone Number [facility] [address] [place] [address] [phone] * (ABNORMAL) Lipid Panel, Standard (12/14/2023 8:32 AM EDT) Triglycerides 55 <150 mg/dL [facility] Comment:Desirable Triglyceri de: less than 150 mg/dLBorderline High Triglyceride 150-199 mg/dLHigh Triglyceride: 200-499 mg/dLVery High Triglyceride: greater than or equal to 5OO mg/dL Cholesterol 133 <200 mg/dL [facility] Comment:Desirable Cholestero l: less than 200 mg/dLBorderline High Cholesterol: 200-239 mg/dLHigh Cholesterol: greater than 239 mg/dL LDL Cholesterol Calculated 87 <100 mg/dL [facility] Comment:Desirable LDL: less than 100 mg/dLNear Optimal/Above Optimal LDL: 110- 129 mg/dLBorderline High LDL: 130-159 mg/dLHigh LDL: 160-189 mg/dLVery High LDL: greater than or equal to 190 mg/dL HDL Cholesterol 35(L) >40 mg/dL [facility] Comment:Desirable HDL: great er than 40 mg/dL Note: This HDL assay may give artificially low results in patients with liver disease. Blood Venous blood specimen / Unknown 12/14/2023 8:32 AM EDT 12/14/2023 11:20 AM EDT us Augusta May MD LAB BLOOD ORDERAB LES Final Result Performing Organization Address City/[facility]/ZIP Co de Phone Number [facility] [address] [place] [address] [phone] * Image-Guided Pap with Age-Based Screening??with CT/NG,??Trichomonas (07/29/2022 11:16 AM EDT) Comment [facility] Comment: This order for age-based cervical cancer and STI screening follows ACOG guidelines(PB 168, 140, UQO292). See individual assays for performing site location. Clinical Information: SCREENING [employer] [facility] LMP: NONE GIVEN [employer] [facility] Prev. PAP: NONE GIVEN [facility] Prev. BX: NONE GIVEN [facility] SOURCE: None given [facility] Statement Of Adequacy: [facility] Comment: Satisfactory for evaluation. Endocervical/transformation zone component absent. Interpretation/Re sult: Negative for intraepithelial lesion or malignancy. [facility] COMMENT: This Pap test has been evaluated with computer assisted technology. [employer] [place] [facility] Rn Diabetes Educator: Madhavi Odoo (formerly [employer]) Comment: [place], CT(ASCP) CT screening location: [place] [address] (Always Message) [facility] [employer] Comment: EXPLANATORY NOTE: The Pap is a [...] HPV nRNA E6/E7 Not Detected Not Detected [facility] Comment: Methodology: Forging Operator-Mediated Amplification This assay detects E6/E7 viral messenger RNA (mRNA) from 14 high-risk HPV types (16,18,31,33,35,39,45,51,52,56,58,59,66,68). Cervical sources are required for HPV testing. If a vaginal source from a patient who has had a total hysterectomy with removal of cervix was submitted, please contact the testing laboratory for alternative testing options. For additional information, please refer to http://education.[facility]/faq/NWD125r0 (This link if provided for information/ educational purposes only.) Chlamydia trachomatis RNA, TMA, Urogenital NOT DETECTED NOT DETECTED [facility] Neisseria gonorrhoeae RNA, TMA, Urogenital NOT DETECTED NOT DETECTED [employer] [place] [facility] (Always Message) Que st [employer] [place] [employer] Comment: The analytical performance characteristics of this assay, when used to test SurePath(TM) specimens have been determined by [employer]. The modifications have not been cleared or approved by the FDA. This assay has been validated pursuant to the CLIA regulations and is used for clinical purposes. For additional information, please refer to https://[employer].[facility]/faq/VSL887 (This link is being provided for information/ educational purposes only.) Trichomonas vaginalis, QL, TMA, PAP Vial NOT DETECTED NOT DETECTED [facility] Comment: The analytical performance characteristics of this assay have been determined by [employer]. The modifications have not been cleared or approved by the FDA. This assay has been validated pursuant to the CLIA regulations and is used for clinical purposes. For additional information, please refer to http://Ideabove.[facility]/ faq/Trichomonastma (This link is being provided for information/ educational purposes only.) Pap Vial 07/29/2022 11:1 6 AM EDT 07/30/2022 5:24 AM EDT Tammy [facility] CYTOLOGY ORDERABLES F inal Result [facility] [address], [place] [phone] [employer] [place] [facility] [address] [place] [phone] from Last 3 Months or Most Recently Relevant to Health Maintenance [place] [address] [address] [address] [facility] STAND ADULT Care Teams Sales Enablement Lead Relationship Specialty Start Date End Date Augusta Cuba MD [address] [place] [phone] PCP - General Internal Medicine 11/22/22
== END 2024-11-29 12:46 | disposition home or self-care (01) ==
LOC: HO.CT 12:45
PROVIDERS: Visit Provider Emergency Medicine
DX: R51.9 Headache, unspecified (principal)
CPT/HCPCS: 70450

== ENCOUNTER → 2024-11-29 12:47 | Outpatient (BNV) | payer MEDICAID, SELFPAY | PROVIDERS: Visit Provider Radiology Diagnostic Radiology | DX: R51.9 Headache, unspecified (principal) | CPT/HCPCS: 70450 ==